=== PATIENT | female | born 1955 | race Caucasian/White ===

== ENCOUNTER 2022-07-02 12:43 | Emergency (ER) | payer MEDICARE ==
[~2022-07-02] VITALS: Ht 177.8 cm; Wt 90.7 kg
[2022-07-02 13:15] LABS: BILIRUBIN Negative (Negative); BLOOD Negative (Negative); CLARITY Clear (Clear); COLOR Yellow (Yellow); GLUCOSE Negative (Negative); KETONE Negative (Negative); LEUKO ESTERASE 3+ (Negative); NITRITE Negative (Negative)
[2022-07-02 13:44] LABS: BACTERIA 3+; EPITHELIAL CELLS 16-20; WBC 21-30 wbc/hpf (0-5)
[2022-07-02 14:13] LABS: BASO % 0.6 % (0.0-1.0); EOS % 0.6 % (1.0-4.0); HEMATOCRIT 44.4 % (37.0-47.0); LYMPH % 18.4 % (27.0-41.0); MEAN CELL VOLUME 89.9 fl (81.0-99.0); MEAN CORPUSCULAR HGB 29.4 pg (27.0-31.0); MEAN CORPUSCULAR HGB CONC 32.7 g/dl (33.0-37.0); MEAN PLATELET VOLUME 10.7 fl (9.6-12.3); MONO # 0.4 10*3/uL (0.1-1.0); NEUT # 3.8 10*3/uL (2.3-7.9); NEUT % 73.2 % (47.0-73.0); PLATELET COUNT AUTOMATED 241 10*3/uL (130-400); RED BLOOD COUNT 4.94 10*6/uL (4.10-5.10); RED CELL DISTRI WIDTH 13.2 % (0-14.5); WHITE BLOOD COUNT 5.2 10*3/uL (4.8-10.8)
[2022-07-02 14:27] LABS: ACT PARTIAL THROMBO TIME 25.1 SECONDS (20.0-32.1)
[2022-07-02 14:33] LABS: ALKALINE PHOSPHATASE 56 U/L (45-117); BUN 10 mg/dl (7-24); CHLORIDE 108 mmol/L (98-107); CREATININE 0.78 mg/dL (0.55-1.02); LIPASE 128 U/L (73-393); POTASSIUM 3.6 mmol/L (3.5-5.1); SGOT/AST 9 IU/L (3-35); SGPT/ALT 14 U/L (12-78); SODIUM 139 mmol/L (136-145); TOTAL PROTEIN 6.9 gm/dL (6.4-8.2)
[2022-07-02] MEDS ORDERED: CIPRO500 MG PO (16:42)
== END 2022-07-02 17:05 | disposition home or self-care (01) ==
LOC: ED 12:43
PROVIDERS: Emergency Medicine
DX: R55 Syncope and collapse (principal); N39.0 Urinary tract infection, site not specified; Z88.5 Allergy status to narcotic agent